=== PATIENT | male | born 1950 | race Caucasian/White ===

== ENCOUNTER 2016-05-08 00:57 | Day surgery (SDC) | payer MEDICARE, OTHER ==
[2016-05-08] VITALS (9 sets, daily range): BP systolic 134–178; BP diastolic 65–83; PULSE 72–77; RESP 12–16; O2SAT 95–99
[~2016-05-08] VITALS: Ht 177.8 cm; Wt 66.0 kg
[~2016-05-08 00:57] MED LIST: ATOR40TA69 PO; FURO40TA4 PO; HYDR-3940 PO; INSLIS SUBQ; INSU100V7 SUBQ; ISOS30TA4 PO; LANT1000 PO
[2016-05-08] MEDS ORDERED: HYDR-4003 PO (11:43)
--- NOTE | 2016-05-08 11:44 | NUR ---
Admit [facility] Admitted to [facility] 7 about 1110. VSS. DL=[id number]. Denies pain. IV started. Confirmed with MD no labs ordered. See EMR for further info and assessment. Procedure and recovery reviewed, verbalizes understanding. Dr. Goodman in and consented pt. Awaiting laboratory mechanic helper.
[2016-05-08] MEDS ORDERED: 0.9% Sodium Chloride 500 ML ONE (12:18)
[2016-05-08] MEDS ORDERED: Heparin 5,000 Units/500 mL NS Premix IV ONE (12:19)
[2016-05-08] MEDS ORDERED: fentaNYL-PF 50 mCg/mL 2 mL Inj ONE (12:37)
[2016-05-08] MEDS ORDERED: diphenhydrAMINE 50 mg Capsule PO ONE ×2 (13:13→13:30)
--- NOTE | 2016-05-08 13:29 | NUR ---
Procedure/Recovery To laborer/grade check about 1225 after techs unable to remove tunnel cath at bedside. Returned around 1300. VSS. Denies pain but c/o itching. Dr. Goodman notified and Benadryl 50mg ordered and given. Scant amt. blood under dressing, no hematoma. Continue to monitor per orders.
--- NOTE | 2016-05-08 13:48 | DRSVH ---
PROCEDURE: 1. Removal of left internal jugular vein tunneled hemodialysis catheter. 2. Conscious sedation x 15 minutes. INDICATIONS: End-stage renal disease. No longer needs dialysis access. COMPARISON: None. Technique:Periprocedural antibiotics were administered when necessary. Informed, written consent fro m the patient was obtained prior to the procedure. Patient was brought to the angiography suite, and conscious sedation was administered intravenously by intermediate staff, while continuous cardiore spiratory monitoring was performed. The left internal jugular vein tunneled hemodialysis catheter and surrounding skin were prepped and draped sterilely, and the surrounding skin was infused with lidoca ine. A scalpel and blunt dissection were used to liberate the cuff. Traction was applied and the cath eter was removed. Pressure was applied for hemostasis. Fluoroscopy time: 0 IMPRESSION: Left internal jugular vein tunneled hemodialysis catheter removal. Dictated by: Mary Goodman M.D. on 05/08/2016 at 13:42 Approved by: Mary Goodman M.D. on 05/08/2016 at 13:46
--- NOTE | 2016-05-08 14:03 | NUR ---
Discharge VS and site remain stable. Denies pain. Discharge instructions given, see sheets.Verbalizes understanding. IV discontinued intact. Discharged ambulatory with all belongings in no distress with brother.
== END 2016-05-08 23:59 | disposition home or self-care (01) ==
LOC: SOUO 00:57
PROVIDERS: ATTEND Radiology Diagnostic Radiology
DX: Z49.01 Encounter for fitting and adjustment of extracorporeal dialysis catheter (principal); I12.0 Hypertensive chronic kidney disease with stage 5 chronic kidney disease or end stage renal disease; E11.22 Type 2 diabetes mellitus with diabetic chronic kidney disease; N18.6 End stage renal disease; F17.200 Nicotine dependence, unspecified, uncomplicated; Z79.4 Long term (current) use of insulin
CPT/HCPCS: 36589; 99152; J1644; J2250; J3010